=== PATIENT | female | born 1985 | race Caucasian/White ===

== ENCOUNTER → 2017-12-23 13:54 | Outpatient (CLI) | payer MEDICAID, SELFPAY ==
[2017-12-31 11:54] LABS: HPV APTIMA, High Risk Negative (Negative)
[2017-12-31 12:08] LABS: HPV Reflexed? YES, CHARGE PATIENT
== END ==
PROVIDERS: Visit Provider Obstetrics & Gynecology
DX: Z12.4 Encounter for screening for malignant neoplasm of cervix (principal)
CPT/HCPCS: 87624; 88175; G0145

== ENCOUNTER → 2019-05-11 16:46 | Outpatient (CLI) | payer BC, SELFPAY ==
[2018-01-07 09:48] VITALS: BMI 16.6
[2019-05-16 17:12] LABS: HPV Reflexed? NOT INDICATED
== END ==
PROVIDERS: Family Provider Family Medicine; PCP Family Medicine; Visit Provider Obstetrics & Gynecology
DX: Z12.4 Encounter for screening for malignant neoplasm of cervix (principal)
CPT/HCPCS: 87624; 88175; G0145

== ENCOUNTER → 2021-03-26 14:59 | Outpatient (CLI) | payer OTHER, MEDICAID, SELFPAY ==
[2018-01-07 09:48] VITALS: BMI 16.6
[2021-03-26 18:08] LABS: Vitamin D,25 Hydroxy 28.4 ng/mL
[2021-03-26 18:16] LABS: Anion Gap 4 (5-15); BUN 8 mg/dL (7-18); BUN/Creat Ratio 11.9 RATIO (10-20); Chloride 104 mmol/L (98-107); Cholesterol 214 mg/dL (200); Creatinine, Serum 0.68 mg/dL (0.55-1.02); EST Glomerular Filtration Rate 105 mL/min (>60); Est Glom Filt Rate - Afr Amer 127 mL/min (>60); Glucose 99 mg/dL (74-106); High Density Lipoprotein 39 mg/dL; Sodium Level 137 mmol/L (136-145); Thyroid Stim Hormone (TSH) 1.64 uIU/mL (0.358-3.74); Triglycerides 86 mg/dL; Very Low Density Lipoprotein 17 mg/dL (5-40)
== END ==
PROVIDERS: PCP Family Medicine; Referring Provider Family Medicine; Visit Provider Family Medicine
DX: Z00.00 Encounter for general adult medical examination without abnormal findings (principal)
CPT/HCPCS: 36415; 80048; 80061; 82306; 84443

== ENCOUNTER → 2021-04-10 17:44 | Outpatient (CLI) | payer OTHER, MEDICAID, SELFPAY | PROVIDERS: PCP Family Medicine; Visit Provider Family Medicine | DX: Z20.822 Contact with and (suspected) exposure to COVID-19 (principal) | CPT/HCPCS: 87635; U0005; U0003 ==

== ENCOUNTER 2021-04-10 22:44 | Emergency (ER) | payer OTHER, MEDICAID, SELFPAY ==
[2021-04-10 22:45] VITALS: BP 116/85; PULSE 116; RESP 16; TEMP 36.7; O2SAT 98; BMI 15.6
--- NOTE | 2021-04-11 00:31 | EX.ED.DYSGE1 ---
HPI History of Present Illness Chief Complaint: General Illness Informant: patient Narrative Narrative: Patient has been ill for 2 or 3 weeks, started with cough, severe fatigue, and feeling achy. She thinks maybe some subjective fevers. She was put on a Z-Jef by her doctor after she had a negative rapid Covid test. Now she is feeling worse and starting to get dyspneic. She had a outpatient PCR Covid test performed today, the results are pending. Since she was feeling poorly she checked her pulse ox at home and she was reading in the 80s so she was concerned and presents for further evaluation. [facility] Medical History (Updated 04/11/21 @ 02:[address] 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 Neoplasm of skin of back Neoplasm of skin of back Nonrheumatic mitral (valve) prolapse Nonrheumatic mitral valve regurgitation Paroxysmal SVT (supraventricular tachycardia) POTS (postural orthostatic tachycardia syndrome) Smoker Syncope and collapse Tachycardia Home Medications fludrocortisone 0.2 mg PO DAILY@0800 02/14/17 [History Last Taken 09/04/17] ondansetron HCl 4 mg tablet 4 mg PO Q4H PRN 10/07/17 [History Last Taken Unknown] aspirin 81 mg tablet,delayed release 81 mg PO QDAY 01/07/18 [History Last Taken Unknown] clopidogrel 75 mg tablet 75 mg PO QDAY 01/07/18 [History Last Taken Unknown] Allergy/AdvReac Type Severity Reaction Status Date / Time latex Allergy Anaphylaxis Verified 04/10/21 22:49 Penicillins Allergy Swelling Verified 04/10/21 22:49 shellfish derived Allergy Anaphylaxis Verified 04/10/21 22:49 Sulfa (Sulfonamide Allergy Unknown Verified 04/10/21 22:49 Antibiotics) citalopram [From Celexa] AdvReac Unknown Unknown Verified 04/10/21 22:49 iodine AdvReac Unknown Unknown Verified 04/10/21 22:49 FLU-SHOT Allergy Anaphylaxis Uncoded 04/10/21 22:49 Family History Grandmother Myocardial infarction Surgical History History of cholecystectomy History of repair of congenital atrial septal defect (ASD) History of tonsillectomy Social History Smoking Status: Current every day smoker tobacco type: cigarettes alcohol intake: never substance use type: does not use ROS ROS ED Constitutional Constitutional ED: Reports body ache(s), chills, fatigue, fever(s) and subjective Eyes Eyes: Denies change in vision or diplopia ENT ENT ED: Denies rhinorrhea or sore throat Cardiovascular Cardiovascular: Denies chest pain or palpitations Respiratory/Chest Respiratory/Chest: Reports cough and dyspnea Gastrointestinal Gastrointestinal: Reports abdominal pain and other Details: no more abd pain than i'm used to ; Denies diarrhea, nausea or vomiting Genitourinary Genitourinary ED: Denies dysuria or hematuria Musculoskeletal Musculoskeletal: Denies back pain or neck pain Integumentary Denies abscess or rash Neurologic Neurologic: Denies headache(s), paresthesias or weakness Psychiatric Psychiatric: Denies anxiety or suicidal thoughts EXAM Physical Exam Const Vital Signs: 04/10/21 22:45 04/11/21 00:17 04/11/21 01:26 Temperature 98.1 F Temperature Source Temporal Pulse Rate 116 H Respiratory Rate 16 18 Respiratory Effort Normal Non-Labored Blood Pressure 116/85 H Blood Pressure Mean 95 Pulse Ox 98 96 Oxygen Delivery Method Room Air Room Air Positive well nourished and well developed General Appearance ED: well developed and NAD HEENT Reports moist mucous membranes normocephalic and atraumatic Eyes PERRL and EOMs intact bilaterally Neck full ROM and supple Resp normal respiratory effort and clear to auscultation bilaterally Cardio regular rate, regular rhythm and no murmurs GI non-tender and non-distended Auscultation: normoactive bowel sounds Palpation: soft Back/Spine no CVA tenderness General Back: other FROM Extremity normal to inspection General Extremety ED: Negative for edema, pulses abnormal or tenderness General Extremity: Negative for edema or pulses abnormal Neuro oriented x3, CN's II-XII intact bilaterally and no sensory deficits noted Sensorium / Orientation: awake and alert Motor Exam: strength 5/5 throughout Skin no rashes or lesions noted and no wounds MDM MDM MDM Narrative Medical decision making narrative: Patient has very opaque finger armenian on it she does not want to remove. We check pulse oximetry on fingers as well as nonpainted toes and her earlobe. She is in the high 90s with each check in her chest x-ray is normal. She has already had antibiotic course. I do not think she needs another one for this upper respiratory illness, she is awaiting PCR results for Covid, I recommend she continue to isolate until that returns negative which hopefully it will. She is amenable to continuing supportive care. Radiography Diagnostic Testing: Radiology Impression Chest X-Ray 04/11/21 00:45 IMPRESSION: Normal x-ray examination of the chest. Electronically Signed: Estefania Oconnor MD at 1:22 EDT , Service support , Discharge Plan Triage Chief Complaint: General Illness ED Provider: Loy Thakkar Dx/Rx/DC Orders Clinical Impression: Acute bronchitis Instructions: ED Bronchitis, No Antibiotic (Adult) Prescriptions: No Action ondansetron HCl [Zofran] 4 mg tablet 4 mg PO Q4H PRNRF: 0 aspirin 81 mg tablet,delayed release (DR/EC) 81 mg PO QDAY RF: 0 clopidogrel 75 mg tablet 75 mg PO QDAY RF: 0 fludrocortisone 0.1 MG tablet 0.2 mg PO DAILY@0800 RF: 0 Primary Care Provider: Chaz Elena Referrals: Chaz Elena MD [Primary Care Provider] - 1 Week if not improving Disposition Disposition: Home, Self Care
--- NOTE | 2021-04-11 00:45 | RAD_ITS ---
STUDY: X-RAY CHEST REASON FOR EXAM: Female, 35 years old. cough sob TECHNIQUE: Single AP portable view of the chest. COMPARISON: 09/04/2017. FINDINGS: The lungs are clear and expanded. There is no demonstrated pleural abnormality. Normal size heart. Normal mediastinum and fatoumata. Normal visualized pulmonary arteries. Normal visualized aortic arch and descending thoracic aorta. Normal visualized thoracic spine. Normal visualized ribs, clavicles, and shoulders. There is no demonstrated abnormality of the visualized soft tissue structures of the upper abdomen. RAD/Chest 1 View (Portable) IMPRESSION: Normal x-ray examination of the chest. Electronically Signed: Estefania Oconnor MD at 1:22 EDT , Service support ,
[2021-04-11 01:26] VITALS: RESP 18; O2SAT 96
== END 2021-04-11 02:19 | disposition home or self-care (01) ==
PROVIDERS: Emergency Provider Emergency Medicine; PCP Family Medicine
DX: J20.9 Acute bronchitis, unspecified (principal); I34.1 Nonrheumatic mitral (valve) prolapse; F17.210 Nicotine dependence, cigarettes, uncomplicated; Q23.1 Congenital insufficiency of aortic valve; Q21.1 Atrial septal defect; Z79.82 Long term (current) use of aspirin; Z79.899 Other long term (current) drug therapy
CPT/HCPCS: 71045; 99282

== ENCOUNTER → 2021-05-14 14:37 | Outpatient (CLI) | payer OTHER, MEDICAID, SELFPAY ==
--- NOTE | 2021-05-14 14:57 | RAD_ITS ---
STUDY: X-RAY - CERVICAL SPINE REASON FOR EXAM: Female, 35 years old. PAIN IN BACK OF NECK. CERVICALGIA TECHNIQUE: 5 view(s) of the cervical spine were obtained. COMPARISON: None FINDINGS: Normal anterior atlantoaxial articulation. Normal odontoid process. There is straightening of the normal cervical lordosis. Marked degree of disc space narrowing and anterior spondylosis at the C5-C6 level. Normal visualized intervertebral neuroforamina. The soft tissue structures are unremarkable. RAD/Cerv Spine 4 or 5 Views IMPRESSION: Disc space narrowing and spondylosis at the C5-C6 level. Electronically Signed: Zan Dasilva MD at 15:30 EDT , Service support ,
--- NOTE | 2021-05-14 14:57 | RAD_ITS ---
STUDY: X-RAY - THORACIC SPINE REASON FOR EXAM: Female, 35 years old. CERVICALGIA TECHNIQUE: 2 view(s) of the thoracic spine were obtained. COMPARISON: None. FINDINGS: Normal kyphosis of the thoracic spine. There is no substantial scoliosis. Normal thoracic vertebrae and endplates. Normal disc space heights. The soft tissue structures are unremarkable. RAD/Thoracic Spine 2 Views IMPRESSION: Normal x-ray examination of the thoracic spine. Electronically Signed: Zan Dasilva MD at 15:30 EDT , Service support ,
== END ==
PROVIDERS: PCP Family Medicine; Referring Provider Family Medicine; Visit Provider Family Medicine
DX: M54.2 Cervicalgia (principal)
CPT/HCPCS: 72050; 72070

== ENCOUNTER → 2021-05-21 16:26 | Outpatient (CLI) | payer OTHER, MEDICAID, SELFPAY ==
[2021-05-21 18:38] LABS: Vitamin D,25 Hydroxy 17.7 ng/mL
[2021-05-21 18:44] LABS: Anion Gap 8 (5-15); BUN 9 mg/dL (7-18); BUN/Creat Ratio 13.5 RATIO (10-20); Calcium,Total 8.6 mg/dL (8.5-10.1); Chloride 104 mmol/L (98-107); Cholesterol 209 mg/dL (200); Creatinine, Serum 0.67 mg/dL (0.55-1.02); EST Glomerular Filtration Rate 106 mL/min (>60); Est Glom Filt Rate - Afr Amer 128 mL/min (>60); Glucose 91 mg/dL (74-106); High Density Lipoprotein 36 mg/dL; Potassium 3.7 mmol/L (3.5-5.1); Sodium Level 140 mmol/L (136-145); Thyroid Stim Hormone (TSH) 2.36 uIU/mL (0.358-3.74); Triglycerides 105 mg/dL; Very Low Density Lipoprotein 21 mg/dL (5-40)
== END ==
PROVIDERS: PCP Family Medicine; Referring Provider Family Medicine; Visit Provider Family Medicine
DX: Z00.00 Encounter for general adult medical examination without abnormal findings (principal)
CPT/HCPCS: 36415; 80048; 80061; 82306; 84443

== ENCOUNTER 2021-06-17 14:00 | Outpatient (RCR) | payer OTHER, MEDICAID, SELFPAY ==
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
--- NOTE | 2021-09-08 13:29 | HP.PT.NRP ---
LINDY YUEN was seen in my office for initial evaluation on 05/20/21. The following Plan of Care was established for this patient: Initial Frequency: 2x /Week Initial Duration: 4 Weeks Patient/Client Instruction: Educate patient on: Condition, Plan of Care For the Purpose of:: To decrease pain, To improve nutrient delivery to tissue, To improve muscle performance and motor function, To improve ability to perform ADL's, To increase tolerance to activity/condition/position, To improve performance and independence with ADL's, To improve ability of physical actions for home/community/work/leisure, To improve gait and locomotor functions, To improve health of tissue, To decrease soft tissue restriction Therapeutic Exercise to Include: Strength training, Postural training, Flexibilty training, Active ROM, Scapular Strength/Stabilization For the Purpose of:: To decrease pain, To increase ROM, To improve muscle performance and motor function, To improve ability to perform ADL's, To increase tolerance to activity/condition/position, To improve ability of physical actions for home/community/work/leisure, To improve health of tissue, To decrease soft tissue restriction, To increase flexibility/ROM TENS: Yes IF ES: Yes Cryotherapy (ice pack, ice massage): Yes Thermo therapy (hot pack): Yes Ultrasound (thermal/non thermal): Yes For the Purpose of:: To decrease pain, To improve nutrient delivery to tissue, To increase oxygenation perfusion, To improve health of tissue, To decrease soft tissue restriction This patient was last seen in our office . Pertinent comments regarding their Physical therapy will appear below: Patient was seen for PT for cervical pain for modalities and POSTURAL/CRERVICAL ROM EX'S ,thus is d/c. At this point I will be discontinuing this patient from physical therapy. I would be happy to see this patient again in the future if found appropriate by the physician. Thank you! Harinder Angeles, PT, Cert MDT, OCS Balance/Gait/Functional tests - Balance/Special Test Scores Oswestry Neck Score: 7
== END 2021-06-17 19:00 | disposition home or self-care (01) ==
LOC: PT 14:00
PROVIDERS: PCP Family Medicine; Referring Provider Family Medicine; Visit Provider Family Medicine
DX: M54.2 Cervicalgia (principal)
CPT/HCPCS: 97014; 97110; 97140; 97162; 97530; G0283

== ENCOUNTER → 2021-08-06 11:53 | Outpatient (CLI) | payer MEDICAID, SELFPAY ==
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
== END ==
PROVIDERS: PCP Family Medicine; Referring Provider Nurse Practitioner Family; Visit Provider Nurse Practitioner Family
DX: M25.511 Pain in right shoulder (principal); R07.81 Pleurodynia
CPT/HCPCS: 71046; 73000; 73030

== ENCOUNTER 2021-09-15 13:39 | Emergency (ER) | payer OTHER, MEDICAID, SELFPAY ==
[2021-09-15 13:41] VITALS: BP 137/97; PULSE 72; RESP 16; TEMP 36.6; O2SAT 97; BMI 15.6
[2021-09-15 14:16] VITALS: BMI 16.9
--- NOTE | 2021-09-15 14:50 | MRI_ITS ---
EXAM: MR HEAD WITHOUT AND WITH INTRAVENOUS CONTRAST CLINICAL INDICATION: paresthesia -- headache, paresthesia down to L1 distribution,? MS TECHNIQUE: Multiplanar and multisequence MR images of the brain were obtained without and with intravenous contrast. This report was created using [employer] report [employer] technology. CONTRAST: dotarem 10ml IV COMPARISON: 06/27/2014 FINDINGS: BRAIN AND EXTRA-AXIAL SPACES: Unremarkable. No intra- or extra-axial hemorrhage. No evidence of acute infarct. No intracranial mass or mass effect. There is preservation of the feliciano/white matter interface. Posterior fossa structures are unremarkable. Ventricles are appropriate for age. No hydrocephalus. Basal cisterns are patent. SELLA: Unremarkable. Normal sella turcica, pituitary gland, infundibular stalk, optic chiasm and hypothalamus. AUDITORY SYSTEM: Unremarkable. The internal auditory canals are patent. BONES/JOINTS: Unremarkable. No discrete lytic or blastic abnormalities. SINUSES: Unremarkable as visualized. Clear. MASTOID AIR CELLS: Unremarkable as visualized. Clear. ORBITS: Unremarkable as visualized. Both globes, extraocular muscles, optic nerves and retrobulbar fat appear unremarkable. VASCULATURE: Unremarkable as visualized. Normal flow voids in the major intracranial circulation. MRI/Brain W/WO Contrast IMPRESSION: Negative MRI brain without and with intravenous contrast. Electronically Signed: Georges Johnson MD at 16:23 EST , Service support ,
--- NOTE | 2021-09-15 14:51 | EKG12_ITS ---
Test Reason : NEURO Blood Pressure : / mmHG Vent. Rate : 061 BPM Atrial Rate : 061 BPM P-R Int : 190 ms QRS Dur : 094 ms QT Int : 436 ms P-R-T Axes : 076 088 068 degrees QTc Int : 438 ms Normal sinus rhythm Normal ECG Confirmed by ANÍBAL SILVESTRE, CYNDI ([id number]), food editor CRISTIN BERMAN ([id number]) on 09/17/2021 9:15:04 AM Referred By: TL Confirmed By:CYNDI SPANGLER MD
--- NOTE | 2021-09-15 14:55 | TELEMED_ITS ---
[facility] has confirmed receipt of a request for visit. This document confirms receipt of the order initiating the consult. To find the results of the consultation, please view the patient's reports for the scanned Telemed Consult.
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
[2021-09-15] MEDS: DiphenhydrAMINE 50 MG/ML Syringe IV (15:13)
[2021-09-15] MEDS: MethylPREDNISolone 125 MG/2 ML Vial IV (15:13)
[2021-09-15 15:17] LABS: Absolute Lymphocyte Count 4.66 X10^3/uL (0.83-4.51); Absolute Neutrophil Count 6.6 X10^3/uL (2.0-7.7); Basophil% 0.8 % (0-1); Eosinophils% 1.6 % (0-5); Hematocrit 35.9 % (37-47); Hemoglobin 13.1 g/dL (12.0-15.0); Lymphocyte # 4.66 X10^3/ul (0.83-4.51); Mean Corp Hgb Conc 36.5 g/dL (32-36); Mean Corpuscular Hgb 35.9 pg (27.0-32.0); Mean Corpuscular Volume 98.4 fL (81-99); Mean Platelet Vol. 8.9 fl (6.2-12.0); Monocyte# 0.72 X10^3/uL; Monocyte% 5.9 % (0-10); NRBC Flagged by Analyzer 0 % (0-5); Neutrophil # 6.55 X10^3/uL (2.7-7.7); Neutrophil % 53.4 % (47-70); Platelet Count 284 K/mm3 (150-450); RBC Distribution Width CV 12.5 % (11.6-14.6); RBC Distribution Width SD 45.1 fl (35.1-43.9); Red Blood Count 3.65 M/mm3 (4.2-5.4); White Blood Count 12.3 K/mm3 (4.4-11.0)
[2021-09-15 15:20] LABS: Prothrombin Time (Protime)PT. 12.7 SECONDS (11.7-14.9)
[2021-09-15 15:38] LABS: ALB/GLOB Ratio 1.1 RATIO (0.9-2.4); AST(SGOT) 14 U/L (15-37); Alanine Aminotransfer ALT/SGPT 22 U/L (13-56); Albumin, Serum 3.7 g/dL (3.2-5.0); Alkaline Phosphatase 53 U/L (45-117); Anion Gap 2 (5-15); BUN 11 mg/dL (7-18); BUN/Creat Ratio 15.4 RATIO (10-20); Calcium,Total 8.7 mg/dL (8.5-10.1); Chloride 108 mmol/L (98-107); Creatinine, Serum 0.71 mg/dL (0.55-1.02); EST Glomerular Filtration Rate 98 mL/min (>60); Est Glom Filt Rate - Afr Amer 118 mL/min (>60); Estimated Creatinine Clearance 84.26 ml/min; Globulin 3.4 g/dL (2.2-4.2); Glucose 92 mg/dL (74-106); Magnesium 2.2 mg/dL (1.6-2.6); Potassium 3.9 mmol/L (3.5-5.1); Protein, Total 7.1 g/dL (6.4-8.2); Sodium Level 138 mmol/L (136-145)
[2021-09-15 15:53] LABS: Internal QC Validated? YES +Cl - CLEAR BKGD; Pregnancy, Serum, hCG Quali. NEGATIVE Negative
--- NOTE | 2021-09-15 19:05 | MRI_ITS ---
EXAM: MR THORACIC SPINE WITHOUT INTRAVENOUS CONTRAST CLINICAL INDICATION: paresthesias -- incontinence of stool x 2 TECHNIQUE: Multiplanar and multisequence MR images of the thoracic spine without intravenous contrast. This report was created using [employer] report [employer] technology. COMPARISON: None. FINDINGS: VERTEBRAE: Unremarkable. No fracture. Normal vertebral bodies and posterior elements. Normal alignment. There is preservation of the normal thoracic kyphosis. No scoliosis. DISCS/SPINAL CANAL/NEURAL FORAMINA: Unremarkable. Normal disc height and morphology. Normal spinal canal and neuroforamina. SPINAL CORD: Unremarkable. Normal in signal and morphology. Normal conus medullaris. SOFT TISSUES: Unremarkable. MRI/Spine Thoracic (Routine) IMPRESSION: Unremarkable MRI of the thoracic spine. Electronically Signed: Georges Johnson MD at 20:37 EST , Service support ,
--- NOTE | 2021-09-15 19:38 | MRI_ITS ---
EXAM: MR CERVICAL SPINE WITHOUT INTRAVENOUS CONTRAST CLINICAL INDICATION: paresthesia -- stool incontinence x 2 TECHNIQUE: Multiplanar and multisequence MR images of the cervical spine without intravenous contrast were performed. This report was created using [employer] report [employer] technology. COMPARISON: None. FINDINGS: VERTEBRAE: There is altered curvature of the normal cervical lordosis. This can suggest neck strain. SPINAL CORD: Unremarkable in signal and morphology. SOFT TISSUES: Unremarkable. No prevertebral soft tissue swelling. LYMPH NODES: Unremarkable. There is no cervical adenopathy. DISCS/SPINAL CANAL/NEURAL FORAMINA: C2-C3: Unremarkable. Normal disc height and morphology. Normal spinal canal and neuroforamina. C3-C4: Unremarkable. Normal disc height and morphology. Normal spinal canal and neuroforamina. C4-C5: C4-5. There are discogenic endplate changes at C4-5. Left paracentral disc bulge causing narrowing of the left lateral recess. This is also causing severe left neural foraminal stenosis and likely compression of the exiting respective nerve root. C5-C6: C5-6. There are discogenic endplate changes . Right paracentral disc bulge causing narrowing of the right neural foramina this is causing right neural foraminal stenosis and likely compression of the exiting respective nerve root. There is also a left paracentral disc bulge. Left neural foraminal stenosis. C6-C7: Unremarkable. Normal disc height and morphology. Normal spinal canal and neuroforamina. C7-T1: Unremarkable. Normal disc height and morphology. Normal spinal canal and neuroforamina. MRI/Spine Cervical (Routine) IMPRESSION: 1. C4-5. There are discogenic endplate changes at C4-5. Left paracentral disc bulge causing narrowing of the left lateral recess. This is also causing severe left neural foraminal stenosis and likely compression of the exiting respective nerve root. 2. There is altered curvature of the normal cervical lordosis. This can suggest neck strain. 3. C5-6. There are discogenic endplate changes . Right paracentral disc bulge causing narrowing of the right neural foramina this is causing right neural foraminal stenosis and likely compression of the exiting respective nerve root. There is also a left paracentral disc bulge. Left neural foraminal stenosis. Electronically Signed: Georges Johnson MD at 20:35 EST , Service support ,
[2021-09-15 20:25] VITALS: BP 119/81; PULSE 86
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
== END 2021-09-15 21:32 | disposition home or self-care (01) ==
PROVIDERS: Emergency Provider Emergency Medicine; PCP Family Medicine; Visit Provider Emergency Medicine
DX: R51.9 Headache, unspecified (principal); R20.2 Paresthesia of skin; F17.210 Nicotine dependence, cigarettes, uncomplicated; Z79.899 Other long term (current) drug therapy
CPT/HCPCS: 70553; 72141; 72146; 80053; 83735; 84703; 85025; 85610; 85730; 93005; 96374; 96375; 99284; A9575; A4216

== ENCOUNTER 2021-11-11 07:14 | Outpatient (CLI) | payer OTHER, MEDICAID, SELFPAY ==
--- NOTE | 2021-11-11 07:17 | CT_ITS ---
STUDY: LOW DOSE CT LUNG CANCER SCREENING REASON FOR EXAM: Female, 36 years old. SCREENING FOR TOBACCO USE DISORDER RADIATION DOSAGE (If Supplied By Facility): CTDIvol = ( 1.46 ) mGy, DLP = ( 54.26 ) mGycm TECHNIQUE: No contrast was administered. Low dose technique was utilized (average mAS-38 and kVp 120). 1.25 mm axial source images with a slice interval of 1.25-mm were reconstructed in lung windows. 2.5 mm axial source images with a slice interval of 2.5-mm were reconstructed in lung windows. 5.0 mm axial source images with a slice interval of 5.0-mm were reconstructed in soft tissue windows. Nodule measured using lung windows on PACS and/or independent workstation with automated measurement of minimum and maximum diameter. Nodule measurement reported as average diameter rounded to the nearest whole number. Growth is defined as an increase ins size of greater than 1.5 mm. COMPARISON: None. NODULES: There is an 8 mm x 7.2 mm well-defined nodular density in the anterior aspect of the right lower lobe abutting the major fissure as seen on axial image #148 and coronal image #74. There is also evidence of a 4.3 mm noncalcified nodule in the peripheral lateral aspect of the right lower lobe as seen on axial image #147 and coronal image #62. There is a 7.1 mm x 7.7 mm noncalcified nodule in the anterior aspect of the lingular segment of the left upper lobe as seen on axial image #203. Mild scarring at the lung bases. Emphysema: Hyperinflation. Emphysematous changes more prominent in the upper lobes. Minimal increased markings in the posterior medial segment of the right lower lobe suggestive of scarring. Linear scarring in the anterior medial aspect of the right middle. Endobronchial lesion: None Aorta: Unremarkable Coronary arteries: Unremarkable Heart: An atrial septal occlusion device is seen. Pulmonary artery: Unremarkable Mediastinal nodes: Unremarkable Other chest and abdominal findings: CT/Low Dose CT Lung Screening IMPRESSION: Lung-RADS category 4A - Screening at 3 months with LDCT or evaluation with PET/CT may be used. IMPORTANT NOTES FOR USE: ACR Lung-RADS Version 1.1 Assessment Categories Release Date: 2018 Category: Coded 0-4 bases on nodule(s) with highest degree of suspicion. Negative screen is defined as categories 1 and 2; a positive screen is defined as categories 3 and 4. Category 3 and 4A nodules that are unchanged on interval CT should be coded as category 2, and individuals returned to screening in 12 months. Category 4X: Category 3 or 4 nodules with additional imaging findings that increase the suspicion of lung cancer, such as spiculation, GGN that doubles in size in 1 year, enlarged lymph notes, etc. Category Modifiers: S (significant finding unrelated to lung cancer) Electronically Signed: Zan Dasilva MD at 9:51 EDT ,
== END 2021-11-11 23:59 | disposition home or self-care (01) ==
LOC: CT 07:15
PROVIDERS: PCP Family Medicine; Referring Provider Family Medicine; Visit Provider Family Medicine
DX: F17.200 Nicotine dependence, unspecified, uncomplicated (principal)
CPT/HCPCS: 71271

== ENCOUNTER 2021-12-04 10:54 | Outpatient (CLI) | payer OTHER, MEDICAID, SELFPAY ==
--- NOTE | 2021-12-04 13:28 | PFTCOMP ---
COMPLETE PULMONARY FUNCTION TEST INTERPRETATION Brief HPI: Patient is a 36 year old female, currently under the care of myself, who presents to [facility] for complete pulmonary function tests secondary to diagnosis of dyspnea. Respiratory therapist reports good effort and reproducible results. Interpretation: Forced expiration spirometry shows a moderate large airways obstructive ventilatory defect with an FEV1 of 66% predicted. There is no significant bronchodilator response by strict ATS criteria. Spirograms are of good quality and plateau slowly, indicating slowly emptying areas of the lungs. The respiratory flow volume loop shows decreased expiratory flow rates at all lung volumes consistent with airway obstruction. Lung volumes by body plethysmography show an elevated total lung capacity at 6.57 L, 116% predicted. All other lung volumes are increased symmetrically. Diffusion capacity by carbon monoxide is decreased at 65% predicted. The airway resistance is slightly elevated. No previous pulmonary function tests were available for review. Impression: Irreversible moderate large airways obstructive ventilatory defect with a symmetric reduction in diffusion capacity, resulting in hyperinflation, and a pattern consistent with COPD
== END 2021-12-04 23:59 | disposition home or self-care (01) ==
PROVIDERS: PCP Family Medicine; Referring Provider Internal Medicine Critical Care Medicine; Visit Provider Internal Medicine Critical Care Medicine
DX: R06.00 Dyspnea, unspecified (principal)
CPT/HCPCS: 94060; 94726; 94729

== ENCOUNTER → 2022-02-19 | Outpatient (CLI) | payer MEDICAID, SELFPAY ==
--- NOTE | 2022-02-19 07:08 | CT_ITS ---
STUDY: CT CHEST WITHOUT CONTRAST REASON FOR EXAM: Female, 36 years old. Lung nodule follow-up. COPD. Patient smoked 1 pack per day for 15 years. RADIATION DOSAGE (If Supplied By Facility): CTDIvol = ( 6.07 ) mGy, DLP = ( 232.18 ) mGycm TECHNIQUE: Transaxial imaging was performed without the administration of intravenous contrast material. Multiplanar coronal and sagittal images were reformatted. Individualized dose optimization techniques were used for this CT. COMPARISON: Comparison is made with prior study of 11/11/2021. FINDINGS: CHEST Mild degree of emphysematous changes more prominent in the upper lobes. Minimal increased markings in the right lung apex suggestive of scarring. Stable scarring in the medial aspect of the right middle lobe. Stable 8 mm x 7 mm well-defined nodular density in the anterior aspect of the right lower lobe abutting the major fissure as seen on axial image #72. Stable 4.3 mm noncalcified nodule in the peripheral aspect of the right lower lobe as seen on axial image #74. Stable 7.7 mm x 7 mm noncalcified nodule in the anterior aspect of the linear segment of the left upper lobe as seen on axial image #100. There is no demonstrated pleural abnormality. An atrial septal occlusion device is seen. Pectus excavatum deformity. Normal mediastinum. Normal hilar regions. Normal unenhanced pulmonary arteries. Normal aorta arch and descending thoracic aorta. Normal osseous structures. There is no demonstrated abnormality of the visualized upper abdomen. CT/Chest without Contrast IMPRESSION: Stable examination. Electronically Signed: Zan Dasilva MD at 8:21 EDT ,
== END | disposition home or self-care (01) ==
PROVIDERS: PCP Family Medicine; Referring Provider Internal Medicine Critical Care Medicine; Visit Provider Internal Medicine Critical Care Medicine
DX: R91.1 Solitary pulmonary nodule (principal); J44.9 Chronic obstructive pulmonary disease, unspecified; Q67.6 Pectus excavatum; R06.00 Dyspnea, unspecified
CPT/HCPCS: 71250

== ENCOUNTER → 2022-07-27 | Outpatient (CLI) | payer OTHER, MEDICAID, SELFPAY ==
--- NOTE | 2022-07-27 13:14 | CT_ITS ---
STUDY: CT Chest W/O Contrast Injection 07/27/2022 4:33 PM REASON FOR EXAM: Female, 36 years old. lung nodule -- HAS PFT FIRST, COPD Individualized dose optimization techniques were used for this CT. TECHNIQUE: Transaxial imaging was performed withoutIV contrast material. COMPARISON: 02.19.22 FINDINGS: There are degenerative changes of the shoulders. There is no pneumothorax. There is no demonstrated pleural abnormality. There are scattered blebs and bullae. This can be seen in pulmonary emphysema. 7 mm and 5 mm nodule in the right middle lobe. This is within the fissure. ACR Lung CT Screening Reporting T Data System (Lung-RADS) score: 2 - Benign Appearance or Behavior. Recommend continued annual screening with low-dose CT (LDCT) in 12 months. ASD occlusion device noted. Normal heart and pericardium with no evidence for calcifications of the coronary arteries. Normal mediastinum. Normal hilar regions. Normal pulmonary arteries. Normal aorta arch and descending thoracic aorta. There are multi-level degenerative changes of the thoracic spine. There are no acute findings of the upper abdomen. CT/Chest without Contrast IMPRESSION: Stable findings. 7 mm and 5 mm nodule in the right middle lobe. This is within the fissure. ACR Lung CT Screening Reporting T Data System (Lung-RADS) score: 2 - Benign Appearance or Behavior. Recommend continued annual screening with low-dose CT (LDCT) in 12 months. Electronically Signed: Georges Johnson MD at 16:43 EST ,
--- NOTE | 2022-07-27 15:32 | PFTCOMP ---
COMPLETE PULMONARY FUNCTION TEST INTERPRETATION Brief HPI: Patient is a 36-year-old female, currently under the care of myself, who presents to [facility] for complete pulmonary function tests secondary to diagnosis of lung nodule. Respiratory therapist reports good effort and reproducible results. Interpretation: Forced expiration spirometry shows a mild large airways obstructive ventilatory defect with an FEV1 of 71% predicted. There is a significant bronchodilator response in FEV1 by strict ATS criteria. Spirograms are of good quality and plateau slowly, indicating slowly emptying areas of the lungs. The respiratory flow volume loop shows decreased expiratory flow rates at all lung volumes consistent with airway obstruction. Lung volumes by body plethysmography show a normal total lung capacity at 6.24 L, 110% predicted. All other lung volumes are within normal limits. Diffusion capacity by carbon monoxide is at the lower limit of normal at 66% predicted. The airway resistance is elevated. Compared to previous pulmonary function tests from 12/04/2021, there has been no significant change. Impression: Partially reversible mild large airways obstructive ventilatory defect with a symmetric reduction diffusing capacity
== END | disposition home or self-care (01) ==
LOC: PSN 13:13
PROVIDERS: PCP Family Medicine; Referring Provider Internal Medicine Critical Care Medicine; Visit Provider Internal Medicine Critical Care Medicine
DX: J44.9 Chronic obstructive pulmonary disease, unspecified (principal); M19.012 Primary osteoarthritis, left shoulder; R91.1 Solitary pulmonary nodule; M19.011 Primary osteoarthritis, right shoulder
CPT/HCPCS: 71250; 94060; 94726; 94729

== ENCOUNTER 2022-09-10 11:08 | Emergency (ER) | payer MEDICAID, SELFPAY ==
[2022-09-10 11:09] VITALS: BP 144/96; PULSE 87; RESP 18; TEMP 36.3; O2SAT 100; BMI 16.4
--- NOTE | 2022-09-10 11:42 | EKG12_ITS ---
Test Reason : Blood Pressure : / mmHG Vent. Rate : 075 BPM Atrial Rate : 075 BPM P-R Int : 190 ms QRS Dur : 088 ms QT Int : 386 ms P-R-T Axes : 081 085 069 degrees QTc Int : 431 ms Normal sinus rhythm Possible Left atrial enlargement Borderline ECG When compared with ECG of 15-SEP-2021 15:09, No significant change was found Confirmed by SUZETTE SILVESTRE, PANKAJ ([id number]), map editor CRISTIN BERMAN ([id number]) on 09/15/2022 11:37:52 AM Referred By: IDA Confirmed By:PANKAJ BRADFORD MD
--- NOTE | 2022-09-10 12:00 | RAD_ITS ---
STUDY: X-RAY CHEST REASON FOR EXAM: Female, 37 years old. Chest pain TECHNIQUE: PA and lateral views of the chest. COMPARISON: Comparison is made with prior study dated 08/06/2021. FINDINGS: EKG electrodes are seen. Hyperinflation. Decreased bilateral bronchovascular markings suggestive of emphysematous change. There is no demonstrated pleural abnormality. Atrial septal occlusion device. Normal mediastinum and fatoumata. Normal visualized pulmonary arteries. Normal visualized aortic arch and descending thoracic aorta. Normal visualized thoracic spine. Normal visualized ribs, clavicles, and shoulders. Pectus excavatum deformity. There is no demonstrated abnormality of the visualized soft tissue structures of the upper abdomen. RAD/Chest PA and Lateral IMPRESSION: Hyperinflation and increased bronchovascular markings. Stable appearance of the atrial septal occlusion device. Electronically Signed: Zan Dasilva MD at 12:23 EST ,
[2022-09-10] MEDS: 0.9% Normal Saline 1,000 ML 1000 ML IV (12:07)
[2022-09-10] MEDS: Aspirin 81 MG TAB.CHEW 324 MG PO (12:07)
[2022-09-10 12:08] VITALS: BP 155/99; PULSE 92; RESP 19; O2SAT 97
[2022-09-10 12:09] LABS: Absolute Neutrophil Count 6.7 X10^3/uL (2.0-7.7); Basophil# 0.07 X10^3/uL; Basophil% 0.5 % (0-1); Eosinophil# 0.28 X10^3/uL; Eosinophils% 2.1 % (0-5); Hematocrit 35.7 % (37-47); Lymphocyte % 40.5 % (19-41); Mean Corp Hgb Conc 33.6 g/dL (32-36); Mean Corpuscular Hgb 34.3 pg (27.0-32.0); Mean Platelet Vol. 8.8 fl (6.2-12.0); Monocyte# 0.84 X10^3/uL; Monocyte% 6.3 % (0-10); NRBC Flagged by Analyzer 0 % (0-5); Neutrophil # 6.71 X10^3/uL (2.7-7.7); Neutrophil % 50.3 % (47-70); POSITIVE DIFFERENTIAL YES; Platelet Count 231 K/mm3 (150-450); RBC Distribution Width CV 13.2 % (11.6-14.6); RBC Distribution Width SD 49.6 fl (35.1-43.9); White Blood Count 13.3 K/mm3 (4.4-11.0)
[2022-09-10 12:27] LABS: ALB/GLOB Ratio 1.2 RATIO (0.9-2.4); AST(SGOT) 14 U/L (15-37); Alanine Aminotransfer ALT/SGPT 24 U/L (13-56); Albumin, Serum 3.7 g/dL (3.2-5.0); Alkaline Phosphatase 44 U/L (45-117); Anion Gap 2 (5-15); BUN 10 mg/dL (7-18); BUN/Creat Ratio 14.9 RATIO (10-20); Chloride 110 mmol/L (98-107); Creatinine, Serum 0.67 mg/dL (0.55-1.02); EST Glomerular Filtration Rate 105 mL/min (>60); Est Glom Filt Rate - Afr Amer 127 mL/min (>60); Globulin 3.1 g/dL (2.2-4.2); Glucose 87 mg/dL (74-106); Lipase 237 U/L (73-393); Potassium 3.5 mmol/L (3.5-5.1); Protein, Total 6.8 g/dL (6.4-8.2); Sodium Level 139 mmol/L (136-145); Troponin-I HS 4 pg/mL (3.0-54.0)
[2022-09-10 12:40] LABS: Atypical Lymphocyte 2+ %; Differential Comment SCANNED; Differential Indicated SCAN CRITERIA MET
[2022-09-10 13:12] VITALS: BP 123/81; PULSE 97; RESP 19; O2SAT 98
--- NOTE | 2022-09-10 14:37 | ED.VIS.CHEST ---
HPI History of Present Illness Chief Complaint: Chest Pain Informant: patient Onset/Context/Timing Onset: Days (2) Activity at onset: sudden Timing: Continuous Quality: Positive for Burning and Sharp Location: Substernal Worsened By: - (Walking) Relieved By: - (Laying flat) Associated Symptoms: Positive for Nausea, Diaphoresis, Dyspnea, Lightheadedness and Palpitations; Negative for Vomiting, Cough, Fever or Acid Reflux Narrative Narrative: Patient presents with chest pain that has been constant for the past 2 days. Patient states it began rather suddenly 2 days ago. Patient describes it as sharp and burning. Patient states it is over the lower substernal area and epigastric area. Patient states it is worse with walking. Patient states it is better when she is able to lay flat. Patient admits to some nausea but denies any vomiting. Patient did break into a sweat. Patient also admits to some shortness of breath with this. Patient admits to some lightheadedness as well as some palpitations. Patient denies any cough or fevers. 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 Neoplasm of skin of back Neoplasm of skin of back Nonrheumatic mitral (valve) prolapse Nonrheumatic mitral valve regurgitation Paroxysmal SVT (supraventricular tachycardia) POTS (postural orthostatic tachycardia syndrome) Smoker Syncope and collapse Tachycardia Home Medications dextroamphetamine-amphetamine 10 mg tablet 10 mg PO BID 09/15/21 [History Last Taken Unknown] midodrine 10 mg tablet 10 mg PO TID 09/15/21 [History Last Taken Unknown] pyridostigmine bromide 60 mg tablet 20 mg PO BID 09/15/21 [History Last Taken Unknown] cholecalciferol (vitamin D3) 125 mcg (5,000 unit) capsule 125 mcg PO DAILY 11/18/21 [History Last Taken Unknown] mirtazapine 15 mg tablet 15 mg PO DAILY 11/18/21 [History Last Taken Unknown] fludrocortisone 0.1 mg tablet 0.2 mg PO DAILY@0800 11/19/21 [History Last Taken Unknown] gabapentin 100 mg capsule 100 mg PO QHS Pain 11/19/21 [History Last Taken Unknown] levetiracetam 250 mg tablet 250 mg PO BID 11/19/21 [History Last Taken Unknown] albuterol sulfate 90 mcg/actuation aerosol inhaler (ProAir HFA) 2 inh inhalation Q4H 02/24/22 [History Last Taken Unknown] umeclidinium 62.5 mcg-vilanterol 25 mcg/actuation powdr for inhalation (Anoro Ellipta) 1 inh inhalation DAILY 02/24/22 [History Last Taken Unknown] Allergy/AdvReac Type Severity Reaction Status Date / Time Influenza Virus Vaccines Allergy Anaphylaxis Verified 09/10/22 11:09 latex Allergy Anaphylaxis Verified 09/10/22 11:09 Penicillins Allergy Swelling Verified 09/10/22 11:09 shellfish derived Allergy Anaphylaxis Verified 09/10/22 11:09 Sulfa (Sulfonamide Allergy Unknown Verified 09/10/22 11:09 Antibiotics) citalopram [From Celexa] AdvReac Unknown Unknown Verified 09/10/22 11:09 iodine AdvReac Unknown Unknown Verified 09/10/22 11:09 Family History (Reviewed 08/28/22 @ 11:45 by Kelly Young SUPERVISOR LEAD REFINERY, SUPERVISOR LEAD REFINERY-C) Grandmother Myocardial infarction Other Lung cancer Surgical History History of cholecystectomy History of repair of congenital atrial septal defect (ASD) History of tonsillectomy Social History Smoking Status: Current every day smoker tobacco type: cigarettes Electronic Cigarette Use: not used second hand exposure: No alcohol intake: never substance use type: other details: Uses CBD oil Daily ROS ROS ED Constitutional Constitutional ED: Denies chills or fever(s) Eyes Eyes: Reports blurry vision; Denies diplopia ENT ENT ED: Denies rhinorrhea or sore throat Cardiovascular Cardiovascular: Reports chest pain and palpitations Respiratory/Chest Respiratory/Chest: Reports dyspnea; Denies cough Gastrointestinal Gastrointestinal: Reports nausea; Denies abdominal pain or vomiting Genitourinary Genitourinary ED: Denies dysuria or hematuria Musculoskeletal Musculoskeletal: Denies back pain or neck pain Integumentary Reports rash; Denies abscess Neurologic Neurologic: Denies headache(s) or weakness Allergic/Immunologic Allergic/Immunologic ED: Denies mouth swelling or urticaria EXAM Physical Exam Const Vital Signs: 09/10/22 11:09 09/10/22 11:42 09/10/22 12:08 Temperature 97.4 F L Temperature Source Temporal Pulse Rate 87 92 Respiratory Rate 18 19 H Respiratory Effort Normal Non-Labored Blood Pressure 144/96 H 155/99 H Blood Pressure Mean 112 117 Pulse Ox 100 97 Oxygen Delivery Method Room Air Room Air 09/10/22 13:12 Temperature Temperature Source Pulse Rate 97 Respiratory Rate 19 H Respiratory Effort Blood Pressure 123/81 H Blood Pressure Mean 95 Pulse Ox 98 Oxygen Delivery Method Room Air Positive well nourished and well developed General Appearance ED: well developed and NAD HEENT normocephalic and atraumatic Eyes PERRL and EOMs intact bilaterally Neck supple and no JVD Chest Wall palpation of chest normal Resp normal respiratory effort and clear to auscultation bilaterally Effort and Inspection: Negative for respiratory distress Cardio regular rate, regular rhythm and no murmurs GI normal to inspection, nondistended, normoactive bowel sounds, soft to palpation, non-tender and non-distended Extremity normal to inspection General Extremety ED: Negative for edema or tenderness General Extremity: Negative for edema Neuro oriented x3, CN's II-XII intact bilaterally and no sensory deficits noted Sensorium / Orientation: awake and alert Motor Exam: strength 5/5 throughout Psych mental status grossly normal Heart Score History: Slightly/Non-Suspicious ECG: Normal Age: </= 45 years Risk Factors: 1 or 2 Risk Factors Troponin: </= Normal Limit Score: 1 MDM MDM MDM Narrative Medical decision making narrative: Patient was placed on continuous cardiac and pulse oximeter monitors. IV line was established. Given the location of the patient's pain, differential diagnosis includes cardiac etiology, pneumonia, pneumothorax, pancreatitis, gastritis, or musculoskeletal etiology. Patient is PERC negative. Therefore, I do not feel pulmonary embolism is a likely diagnosis. We will obtain EKG to check for cardiac ischemia. CBC will be obtained to check for anemia and leukocytosis. Comprehensive metabolic profile will be obtained to check for electrolytes, renal function, hepatic function. Lipase will be obtained to check for pancreatitis. High-sensitivity troponin will be obtained to check for cardiac ischemia. PA and lateral chest x-ray will be obtained to check for pneumonia or pneumothorax given her body habitus and history of smoking. Lab Data Attestation: I reviewed the patient's lab results. Lab results narrative: CBC was reviewed. There is a mild leukocytosis of 13.3. Hemoglobin and hematocrit are stable. Platelets are normal. Comprehensive metabolic profile was reviewed. Chloride was slightly elevated at 110. The remaining values are within normal limits. Lipase was reviewed and was normal. High-sensitivity troponin was reviewed and was normal. Labs: Laboratory Results - last 24 hr 09/10/22 09/10/22 11:48 11:48 WBC 13.3 H RBC 3.50 L Hgb 12.0 Hct 35.7 L MCV 102.0 H MCH 34.3 H MCHC 33.6 RDW Std Deviation 49.6 H RDW Coeff of Maria 13.2 Plt Count 231 MPV 8.8 Immature Gran % (Auto) 0.300 Neut % (Auto) 50.3 Lymph % (Auto) 40.5 [place] % (Auto) 6.3 Eos % (Auto) 2.1 Baso % (Auto) 0.5 Absolute Neuts (auto) 6.7 Absolute Lymphs (auto) 5.40 H Nucleated RBC % 0 Differential Comment SCANNED Atypical Lymphocytes 2+ Sodium 139 Potassium 3.5 Chloride 110 H Carbon Dioxide 27.0 Anion Gap 2 L BUN 10 Creatinine 0.67 Estim Creat Clear Calc 85.60 Est GFR (MDRD) Af Amer 127 Est GFR (MDRD) Non-Af 105 BUN/Creatinine Ratio 14.9 Glucose 87 Calcium 9.0 Total Bilirubin 0.30 AST 14 L ALT 24 Alkaline Phosphatase 44 L Troponin I High Sens 4 Total Protein 6.8 Albumin 3.7 Globulin 3.1 Albumin/Globulin Ratio 1.2 Lipase 237 Radiography Chest X-Ray - ED: 2 View, Read by ED Physician, Read by Radiologist, No Acute Disease and Chronic Changes Diagnostic Testing: Clinical Impression(s) from Imaging Studies Chest X-Ray 09/10/22 12:00 IMPRESSION: Hyperinflation and increased bronchovascular markings. Stable appearance of the atrial septal occlusion device. Electronically Signed: aZn Dasilva MD at 12:23 EST , EKG Initial EKG: Attestation: I personally reviewed and interpreted this EKG as follows: Interpretation: Sinus Rhythm (75) and No Acute Injury Pattern Comments: EKG was obtained. On my interpretation, it showed a normal sinus rhythm with a rate of 75. RI interval, QRS interval, and QTc intervals were all normal. [place] was normal. There are no acute ST or T wave changes. Prior EKG tracings: available for review Prior: Unchanged (09/15/2021) Treatment and Re-Evaluation Narrative: Patient is feeling better on reevaluation. Patient was advised of her findings. Patient has a HEART score of 1. I do not feel that this is cardiac in etiology. I feel that the patient is stable to be discharged. Patient was instructed to follow-up with her primary care physician in 5 to 7 days for reevaluation and further management. Patient was instructed to take Tylenol or ibuprofen as needed for pain. Patient was instructed return if worse in any way. Patient understood and was agreeable with the plan. All questions were answered. Discharge Plan Triage Chief Complaint: Chest Pain Other Complaint: Abd Pain Chest Other Nausea/Vomiting ED Provider: Rashad Miller Dx/Rx/DC Orders Clinical Impression: Chest pain, Smoker Instructions: ED Chest Pain, Uncertain Cause Prescriptions: No Action cholecalciferol (vitamin D3) 125 mcg (5,000 unit) capsule 125 mcg PO DAILY mirtazapine 15 mg tablet 15 mg PO DAILY levetiracetam 250 mg tablet 250 mg PO BID Anoro Ellipta 62.5-25 mcg/actuation blister with device 1 inh inhalation DAILY albuterol sulfate [ProAir HFA] 90 mcg/actuation HFA aerosol inhaler 2 inh inhalation Q4H fludrocortisone 0.1 mg tablet 0.2 mg PO DAILY@0800 dextroamphetamine-amphetamine 10 mg tablet 10 mg PO BID pyridostigmine bromide 60 mg tablet 20 mg PO BID midodrine 10 mg tablet 10 mg PO TID gabapentin 100 mg capsule 100 mg PO QHS Primary Care Provider: Chaz Elena Referrals: Chaz Elena MD [Primary Care Provider] - 5-7 Days Disposition Disposition: Home, Self Care
--- NOTE | 2022-09-10 14:45 | ED.RN ---
COMES OUT OF ROOM AND STATES THAT PT IS READY TO GO RIGHT NOW AND DEMANDS HER IV BE TAKEN OUT. UPON THIS RN GOING INTO ROOM, PT AND UPSET THAT PT DID NOT HAVE A CALL LIGHT AFTER RETURNING FROM CT SCAN. PT STATES THAT SHE HAD TO URINATE IN A URINAL BOTTLE SINCE SHE HAD NO WAY OF NOTIFYING STAFF THAT SHE NEEDED TO USE THE RESTROOM. THIS RN APOLOGIZES AT THIS TIME. PT STATES THE DOCTOR CAME IN AND I TOLD HIM THAT I NEEDED TO GO. SHAME ON HIM FOR NOT TELLING YOU. PT ALSO STATES HE CAME IN AND SAID THERES NOTHING WRONG WITH YOUR HEART. I DIDNT COME HERE FOR MY HEART. I CAME HERE FOR THE PAIN IN MY SIDE AND CONCERNS FOR MY SPLEEN. I HAVE A [employer] THROUGH [facility] PT REQUESTS PT ADVOCATE CARD. AGAIN THIS RN APOLOGIZES AND PT STATES THAT THIS RN DID NOTHING WRONG.
[2022-09-10 14:48] VITALS: RESP 18
== END 2022-09-10 14:56 | disposition home or self-care (01) ==
PROVIDERS: Emergency Provider Emergency Medicine; PCP Family Medicine; Visit Provider Emergency Medicine
DX: R07.9 Chest pain, unspecified (principal); F17.210 Nicotine dependence, cigarettes, uncomplicated; R10.9 Unspecified abdominal pain; R00.2 Palpitations; R11.2 Nausea with vomiting, unspecified; Q23.1 Congenital insufficiency of aortic valve
CPT/HCPCS: 71046; 80053; 83690; 84484; 85025; 93005; 99284; J7030; A4216

== ENCOUNTER → 2023-02-18 | Outpatient (CLI) | payer OTHER, MEDICAID, SELFPAY ==
--- NOTE | 2023-02-18 11:37 | RAD_ITS ---
STUDY: X-RAY - PELVIS AND RIGHT HIP REASON FOR EXAM: Female, 37 years old. Hip pain. TECHNIQUE: 3 views of the pelvis and hip. COMPARISON: None. FINDINGS: There is a non-specific bowel gas pattern. Normal visualized soft tissue structures. Normal bilateral iliac wings, sacroiliac joints and visualized sacrum. Normal bilateral superior and inferior pubic rami. Normal pubic symphysis. Normal bilateral ischial tuberosities. Normal visualized right femoral head. Normal right acetabulum. Normal hip joint. RAD/HIP, UNI W/ Pelvis 2-3 Views IMPRESSION: Normal x-ray examination of the pelvis and right hip. Electronically Signed: Mode Hamlin DO at 18:27 EDT ,
== END | disposition home or self-care (01) ==
LOC: MTRAD 11:35
PROVIDERS: PCP Family Medicine; Referring Provider Family Medicine; Visit Provider Family Medicine
DX: M25.551 Pain in right hip (principal)
CPT/HCPCS: 73502